=== PATIENT | female | born 2000 | race Two or more races ===

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

== ENCOUNTER 2019-02-16 12:24 | Emergency (ER) | payer MEDICAID ==
--- NOTE | 2019-02-16 16:23 | ED Physician Chart ---
ED Chief Complaint/HPI - Patient Information Date Seen:: 02/16/19 Time Seen:: 13:00 Chief Complaint:: Insect Bite History of Present Illness:: onset x 2 days of RLF redness and swelling after an insect bite 2 days ago; pt denies any other trauma, H/As, S/T, neck pain, C/P, SOB, Abd. Pain, A/N/V/D/C, fever, chills, weakness, dizziness, paresthesias, vertigo, bleeding, or urinary s/s; pt's last tetanus shot: < 5 years; UTD; LNMP: 02/09/19; pt denies Allergies:: Allergies Allergy/AdvReac Type Severity Reaction Status Date / Time No Known Allergies Allergy Verified 02/16/19 12:58 Vitals:: Vital Signs - 8 hr 02/16/19 02/16/19 12:58 13:11 Temp 98.4 F 98.4 F HR 73 73 RR 16 16 BP 111/62 111/62 O2 Sat % 98 98 Historian:: Patient, Family Member Review:: Nurse's Note Reviewed ED Review of Systems - Review of Systems General/Constitutional: No fever, No chills, No weight loss, No weakness, No diaphoresis, No edema, No loss of appetite Skin: No skin lesions, No rash, No bruising Head: No headache, No light-headedness Eyes: No loss of vision, No pain, No diplopia ENT: No earache, No nasal drainage, No sore throat, No tinnitus Neck: No neck pain, No swelling, No thyromegaly, No stiffness, No mass noted Cardio Vascular: No chest pain, No palpitations, No PND, No orthopnea, No edema Pulmonary: No SOB, No cough, No sputum, No wheezing GI: No nausea, No vomiting, No diarrhea, No pain, No melena, No hematochezia, No constipation, No hematemesis G/U: No dysuria, No frequency, No hematuria, No nacturia Fish Peddler: No vaginal discharge, No abnormal vaginal bleed, No contraction Musculoskeletal: No bone or joint pain, No back pain, No muscle pain Endocrine: No polyuria, No polydipsia Psychiatric: No prior psych history, No depression, No anxiety, No suicidal ideation, No homicidal ideation, No auditory hallucination, No visual hallucination Hematopoietic: No bruising, No lymphadenopathy Allergic/Immuno: No urticaria, No angioedema Neurological: No syncope, No focal symptoms, No weakness, No paresthesia, No headache, No seizure, No dizziness, No confusion, No vertigo ED Past Medical History - Past Medical History Obtainable: Yes Past Medical History: No significant medical hx Family History: None Social History: Non Smoker, No Alcohol, No Drug Use, Single, Lives With Parents Surgical History: None Psychiatricy History: None Medication: Reviewed Family Medical History - Family Member Grandmother History Unknown: Yes Hx Family Diabetes: Yes ED Physical Exam - Physical Examination General/Constitutional: Awake, Well-developed, well-nourished, Alert, No distress, GCS 15, Non-toxic appearing, Ambulatory Head: Atraumatic Eyes: Lids, conjuctiva normal, PERRL, EOMI Skin: Nl inspection, No rash, No skin lesions, No ecchymosis, Well hydrated, No lymphadenopathy Other Skin comments:: + RLF Localized Cellulitis around a PW at PP region of RLF; no septic joints; no joint tenderness; full ROMs of all joints; no ligament instability; no FBs; good motor, tendon, and sensory functions ENMT: External ears, nose nl, TM canals nl, Nasal exam nl, Lips, teeth, gums nl , Oropharynx nl, Tonsils nl Neck: Nontender, Full ROM w/o pain, No JVD, No nuchal rigidity, No bruit, No mass, No stridor Other Neck comments:: supple; no meningeal signs; no cervical tenderness Respiratory: Nl effort/Exclusion, Clear to Auscultation, No Wheeze/Rhonchi/Rales Cardio Vascular: RRR, No murmur, gallop, rubs, NL S1 S2, Carotid/Femoral/Distal pulses equal bilaterally GI: No tenderness/rebounding/guarding, No organomegaly, No hernia, Normal BS's, Nondistended, No mass/bruits, No McBurney tenderness Other GI comments:: no pulsatile masses : No CVA tenderness Extremities: No tenderness or effusion, Full ROM, normal strength in all extremities, No edema, Normal digits & nails Other Extremities comments:: as above Neuro/Psych: Alert/oriented, DTR's symmetric, Normal sensory exam, Normal motor strength, Judgement/insight normal, Mood normal, Normal gait, No focal deficits Misc: Normal back, No paraspinal tenderness ED Labs/Radiology/EKG Results - Radiology Results Comments:: X-Rays: deferred by pt ED Septic Shock - . Is Septic Shock (SBP<90, OR Lactate>4 mmol\L) present?: No - <6hrs of presentation: Vital Signs: Vital Signs - 8 hr 02/16/19 02/16/19 12:58 13:11 Temp 98.4 F 98.4 F HR 73 73 RR 16 16 BP 111/62 111/62 O2 Sat % 98 98 ED Reassessment (Disposition) - Reassessment Reassessment:: pt is asymptomatic upon discharge Reassessment Condition:: Improved - Diagnosis Diagnosis:: RLF Cellulitis; Right Little Finger Insect Bite Wound and Cellulitis; Animal Bite; Localized Cellulitis - Aftercare/Follow up Instructions Aftercare/Follow-Up Instructions:: Counseled pt regarding lab results/diagnosis & need follow up, Refer to Discharge Instructions, Counseled pt & family regarding lab results/diagnosis & need follow up Medication Prescribed:: Rx: Keflex 500mg po tid x 10 days; Neosporin Ointment bid x 14 days; Warm Compresses/Heating Pads to affected areas; take all medications as prescribed - Patient Disposition Discharge/Transfer:: Home Condition at Disposition:: Stable, Improved (RTER prn if existing s/s reoccur and/or get worse and/or any other new s/s occur; ACIs given for all above Dx; Refer to Hand Specialist/Vascular Surgeon/Orthopedist/Paperboard Machine Operator [facility]Y; F/U with PMD in one day or prn; RTER prn if concerned)
== END 2019-02-16 13:25 | disposition home or self-care (01) ==
LOC: ER 12:24
DX: S60.466A Insect bite (nonvenomous) of right little finger, initial encounter (principal); L03.011 Cellulitis of right finger; W57.XXXA Bitten or stung by nonvenomous insect and other nonvenomous arthropods, initial encounter; Y93.89 Activity, other specified; Y92.89 Other specified places as the place of occurrence of the external cause; Y99.8 Other external cause status
CPT/HCPCS: Z7502

== ENCOUNTER 2019-06-18 20:53 | Emergency (ER) | payer MEDICAID ==
--- NOTE | 2019-06-18 21:27 | ED Physician Chart ---
ED Chief Complaint/HPI - Patient Information Date Seen:: 06/18/19 Time Seen:: 21:22 Chief Complaint:: abd pain History of Present Illness:: 19 yr ols female in good health with stomach painand menstrual cramps no nv diarhea or fever cough Allergies:: Allergies Allergy/AdvReac Type Severity Reaction Status Date / Time No Known Allergies Allergy Verified 06/18/19 21:01 Vitals:: Vital Signs - 8 hr 06/18/19 20:55 Temp 101 F HR 123 RR 18 BP 113/64 O2 Sat % 98 ED Review of Systems - Review of Systems General/Constitutional: No fever, No chills, No weight loss, No weakness, No diaphoresis, No edema, No loss of appetite Skin: No skin lesions, No rash, No bruising Head: No headache, No light-headedness Eyes: No loss of vision, No pain, No diplopia ENT: No earache, No nasal drainage, No sore throat, No tinnitus Neck: No neck pain, No swelling, No thyromegaly, No stiffness, No mass noted Cardio Vascular: No chest pain, No palpitations, No PND, No orthopnea, No edema Pulmonary: No SOB, No cough, No sputum, No wheezing GI: No nausea, No vomiting, No diarrhea, Pain, No melena, No hematochezia, No constipation, No hematemesis G/U: No dysuria, No frequency, No hematuria Musculoskeletal: No bone or joint pain, No back pain, No muscle pain Endocrine: No polyuria, No polydipsia Psychiatric: No prior psych history, No depression, No anxiety, No suicidal ideation Hematopoietic: No bruising, No lymphadenopathy Allergic/Immuno: No urticaria, No angioedema Neurological: No syncope, No focal symptoms, No weakness, No paresthesia, No headache, No seizure, No dizziness, No confusion, No vertigo ED Past Medical History - Past Medical History Past Medical History: No significant medical hx Family Medical History - Family Member Grandmother History Unknown: Yes Hx Family Diabetes: Yes ED Physical Exam - Physical Examination General/Constitutional: Awake, Well-developed, well-nourished, Alert, No distress, GCS 15, Non-toxic appearing, Ambulatory Head: Atraumatic Eyes: Lids, conjuctiva normal, PERRL, EOMI Skin: Nl inspection, No rash, No skin lesions, No ecchymosis, Well hydrated, No lymphadenopathy ENMT: External ears, nose nl, Nasal exam nl, Lips, teeth, gums nl Neck: Nontender, Full ROM w/o pain, No JVD, No nuchal rigidity, No bruit, No mass, No stridor Respiratory: Nl effort/Exclusion, Clear to Auscultation, No Wheeze/Rhonchi/Rales Cardio Vascular: RRR, No murmur, gallop, rubs, NL S1 S2 GI: No tenderness/rebounding/guarding, No organomegaly, No hernia, Normal BS's, Nondistended, No mass/bruits, No McBurney tenderness : No CVA tenderness Extremities: No tenderness or effusion, Full ROM, normal strength in all extremities, No edema, Normal digits & nails Neuro/Psych: Alert/oriented, DTR's symmetric, Normal sensory exam, Normal motor strength, Judgement/insight normal, Mood normal, Normal gait, No focal deficits Misc: Normal back, No paraspinal tenderness ED Assessment - Assessment General Assessment: menstrual cramps abd pain ED Septic Shock - . Is Septic Shock (SBP<90, OR Lactate>4 mmol\L) present?: No - <6hrs of presentation: Vital Signs: Vital Signs - 8 hr 06/18/19 20:55 Temp 101 F HR 123 RR 18 BP 113/64 O2 Sat % 98 ED Reassessment (Disposition) - Reassessment Reassessment:: abd pain menstrual cramps - Diagnosis Diagnosis:: as above - Aftercare/Follow up Instructions Aftercare/Follow-Up Instructions:: Counseled pt regarding lab results/diagnosis & need follow up - Patient Disposition Discharge/Transfer:: Home Condition at Disposition:: Stable
[2019-06-18 21:48] LABS: URINE SOURCE CLEAN C
[2019-06-18 21:53] LABS: URINE BILIRUBIN NEGATIVE (NEGATIVE); URINE BLOOD LARGE (NEGATIVE); URINE GLUCOSE (UA) NEGATIVE (NEGATIVE); URINE KETONE NEGATIVE (NEGATIVE); URINE LEUKOCYTE ESTERASE SMALL (NEGATIVE); URINE MICROSCOPIC INDICATED? YES; URINE NITRATE POSITIVE (NEGATIVE); URINE PROTEIN 30 mg/dL (NEGATIVE)
[2019-06-18 21:54] LABS: URINE CLARITY TURBID (CLEAR); URINE COLOR YELLOW
[2019-06-18 22:00] LABS: URINE RBC 0-2 /hpf (0-5)
[2019-06-18 22:01] LABS: URINE BACTERIA MODERATE /hpf (NONE SEEN); URINE EPITHELIAL CELLS MODERATE /lpf (FEW); URINE WBC 50-100 /hpf (0-5)
[2019-06-18 22:21] LABS: % BASOPHILS 1.2 % (0.0-2.0); % EOSINOPHILS 0.5 % (0.0-5.0); % MONOCYTES 8.5 % (2.0-10.0); % NEUTROPHILS 83.8 % (40.0-80.0); BASOPHILE ABSOLUTE 0.1 Th/cumm (0-0.2); EOSINOPHILE ABSOLUTE 0.1 Th/cmm (0.1-0.4); HEMATOCRIT 37.4 % (41.0-60); HEMOGLOBIN 12.7 gm/dL (12-16); LYMPHOCYTE ABSOLUTE 0.7 Th/cmm (1.5-3.0); MEAN CELL VOLUME 91.5 fl (81-100); MEAN CORPUSCULAR HEMOGLOBIN 31.1 pg (27.0-31.0); NEUTROPHILE ABSOLUTE 10.3 Th/cmm (1.8-8.0); PLATELET COUNT 174 Th/cmm (150-400); RED BLOOD COUNT 4.09 Mil/cmm (3.80-5.10); RED CELL DISTRIBUTION WIDTH 11.8 % (11.5-20.0); WHITE BLOOD COUNT 12.2 Th/cmm (4.8-10.8)
[2019-06-18 22:35] LABS: MONOCYTE 8.5 % (2-10); NEUTROPHILS 83.8 % (40-80)
[2019-06-18 22:39] LABS: ALB/GLOB RATIO 1.4 (1.0-1.8); ALBUMIN 3.8 gm/dL (3.7-5.3); ALKALINE PHOSPHATASE 92 U/L (34-104); ANION GAP 11.2 (7.0-16.0); BUN - UREA NITROGEN 10 mg/dL (7-25); CALCIUM SERUM 8.7 mg/dL (8.6-10.3); CARBON DIOXIDE 22.5 mEq/L (21.0-31.0); CHLORIDE 104 mEq/L (98-107); CREATININE - SERUM 0.8 mg/dL (0.6-1.2); GFR AFRICAN-AMERICAN > 60.0 ml/min (>90); GFR NON AFRICAN-AMERICAN > 60.0 ml/min; GLUCOSE 127 mg/dL (70-105); POTASSIUM SERUM 3.7 mEq/L (3.5-5.1); SGOT 34 U/L (13-39); SGPT/ALT 65 U/L (7-52); SODIUM SERUM 134 mEq/L (136-145); TOTAL PROTEIN,SERUM 6.5 gm/dL (6.0-8.3)
== END 2019-06-18 22:45 | disposition home or self-care (01) ==
LOC: ER 20:53
DX: N39.0 Urinary tract infection, site not specified (principal); M54.9 Dorsalgia, unspecified
CPT/HCPCS: 99283; 96372; 36415; 85025; 87086; 81001; 81025; 80053; 85007; J0696; Z7502

== ENCOUNTER 2019-07-01 15:27 | Emergency (ER) | payer MEDICAID ==
[2019-07-01] MEDS ORDERED: EPINEPHRine HCL 1 mg/mL 1mL Amp SUBQ STA (15:36)
--- NOTE | 2019-07-01 15:42 | ED Physician Chart ---
ED Chief Complaint/HPI - Patient Information Date Seen:: 07/01/19 Time Seen:: 15:30 Chief Complaint:: pruritic rash History of Present Illness:: Patient developed a pruritic rash initially on her knees but now evaluating her thighs, arms and neck. No throat swelling or difficulty breathing. No new foods, soaps, contactants. Allergies:: Allergies Allergy/AdvReac Type Severity Reaction Status Date / Time No Known Allergies Allergy Verified 06/18/19 21:01 Historian:: Patient Review:: Nurse's Note Reviewed ED Review of Systems - Review of Systems General/Constitutional: No fever, No chills, No weight loss, No weakness, No diaphoresis, No edema, No loss of appetite Skin: Rash Head: No headache, No light-headedness Eyes: No loss of vision, No pain, No diplopia ENT: No earache, No nasal drainage, No sore throat, No tinnitus Neck: No neck pain, No swelling, No thyromegaly, No stiffness, No mass noted Cardio Vascular: No chest pain, No palpitations Pulmonary: SOB GI: No nausea, No vomiting, No diarrhea, No pain, No melena, No hematochezia, No constipation, No hematemesis G/U: No dysuria, No frequency, No hematuria Musculoskeletal: No bone or joint pain, No back pain, No muscle pain Endocrine: No polyuria, No polydipsia Psychiatric: No prior psych history, No depression, No anxiety, No suicidal ideation Hematopoietic: No bruising, No lymphadenopathy Allergic/Immuno: No urticaria, No angioedema Neurological: No syncope, No focal symptoms, No weakness, No paresthesia, No headache, No seizure, No dizziness, No confusion, No vertigo ED Past Medical History - Past Medical History Past Medical History: No significant medical hx Family History: Diabetes Melitus Social History: Non Smoker, No Alcohol Surgical History: None Psychiatricy History: None Medication: None Family Medical History - Family Member Grandmother History Unknown: Yes Hx Family Diabetes: Yes ED Physical Exam - Physical Examination General/Constitutional: Awake, Well-developed, well-nourished, Alert, No distress, GCS 15, Non-toxic appearing, Ambulatory Head: Atraumatic Eyes: Lids, conjuctiva normal, PERRL, EOMI Other Skin comments:: Urticaria especially pronounced on the thighs and to a lesser extent on the arms. ENMT: External ears, nose nl, Nasal exam nl, Lips, teeth, gums nl, Oropharynx nl , Tonsils nl Other ENMT comments:: Right ceruminosis; left tympanic membrane clear Neck: No nuchal rigidity Respiratory: Nl effort/Exclusion, Clear to Auscultation, No Wheeze/Rhonchi/Rales Cardio Vascular: RRR, No murmur, gallop, rubs GI: No tenderness/rebounding/guarding : No CVA tenderness Extremities: Normal digits & nails Neuro/Psych: No focal deficits ED Assessment - Assessment General Assessment: At 1620 patient felt markedly improved. She only felt the rash on her neck. Patient is driving home and I warned her to be careful because Atarax which she received in the emergency department can make her drowsy. Patient also told that the rash may recur in 1-2 hours as whatever she is allergic to that is causing the rash may last longer in her body than the shot she was given, ie, the epinephrine 0.3 mg subcutaneous. ED Septic Shock - . Is Septic Shock (SBP<90, OR Lactate>4 mmol\L) present?: No ED Reassessment (Disposition) - Reassessment Reassessment Condition:: Improved - Diagnosis Diagnosis:: Urticaria - Aftercare/Follow up Instructions Aftercare/Follow-Up Instructions:: Refer to Discharge Instructions - Patient Disposition Discharge/Transfer:: Home Condition at Disposition:: Stable, Improved
[2019-07-01] MEDS ORDERED: EPINEPHRine HCL 1 mg/mL 1mL Amp ONE (15:49)
== END 2019-07-01 16:30 | disposition home or self-care (01) ==
LOC: ER 15:27
DX: L50.9 Urticaria, unspecified (principal)
CPT/HCPCS: 99283; 96372; J0171; Z7502